=== PATIENT | male | born 1970 | race Caucasian/White ===

== ENCOUNTER → 2016-09-17 | Outpatient (CLI) | payer BC ==
--- NOTE | 2016-09-17 14:15 | RAD ---
APPROVED REPORT Test Type: Exercise Stress Nurse/Tech: Samaria Almanzar R.N. Test Indications: chest pain Cardiac History: Family history, Hypertension Medications: See Electronic Medical Record Medical History: See Electronic Medical Record Resting ECG: NSR Resting Heart Rate: 79 bpm Resting Blood Pressure: 128/86mmHg Pretest Chest Pain: No chest pain Nurse/Tech Notes S1S2, lungs sound clear Consent: The procedure was explained to the patient in lay terms. Informed consent was witnessed. Compa eout was entered into [employer]. History and Stress Test performed by Samaria Almanzar R.N. Stress Symptoms Dyspnea POST EXERCISE Reason for Termination: Reached target heart rate Target HR: 146 Max HR: 152 bpm Exercise duration: 10 min. min:sec, 4 Stage Max Blood Pressure: 144/54mmHg Blood Pressure response to exercise: Normal blood pressure response during stress. Chest Pain: No. Arrhythmia: Yes. occ PVC ST Change: No. INTERPRETATION Stress EKG Conclusion: Baseline EKG showed sinus rhythm. No ischemic changes at peak stress. No arr hythmias. Imaging Protocol IMAGE PROTOCOL: Rest Tc-99m/stress Tc-99m 1 day Rest: Stress: Viability: Radiopharm.Tc99m [id number] Sestamibi Dose13.7mCi 32mCi Img Date 09/17/2016 09/17/2016 Inj-Img [id number]. 60min. Rest Admin Site:IV - Left HandAdministrator:JESSICA Victor Stress Admin Site: IV - Left HandAdministrator: Eren Hayes, (R)(N) STRESS DATA End Diast. Vol.137.0mlAv. Heart Rate87.0bpm End Syst. Vol.58.0mlCO Index BSA0.0L/min Myocardial Tnyr573.0gEject. Sruotlzz86.0% Stress Rates Pk. Fill Rate2.60EDV/secLVtime Pk. Fill 101.99msec Pk. Empty Rate4.18ESV/secLVtime Pk. Sjnre455.82msec 04/16 Pk. Fill1.66EDV/sec Stress Scores Regional WT2.00Summed WT4.00 Regional WM0.00Summed WM0.00 Study quality was good. Left Ventricular size was Normal at Rest and Stress. Lung uptake was Normal. Left Ventricular ejection fraction is 58%. The rest and stress images show normal perfusion, normal contraction and thickening. LV Perf. Quant 17 Seg. SSS0.00 17 Seg. SRS1.00 17 Seg. SDS0.00 Stress Defect Extent (% LAD)0.00Rest Defect Extent (% LAD)0.00Rev. Defect Extent (% LAD)0.00 Stress Defect Extent (% LCX) 0.00Rest Defect Extent (% LCX)5.00Rev. Defect Extent (% LCX)0.00 Stress Defect Extent (% RCA)0.00Rest Defect Extent (% RCA)0.00Rev. Defect Extent (% RCA)0.00 Stress Defect Extent (% HALEIGH)0.90Rest Defect Extent (% HALEIGH)2.80Rev. Defect Extent (% HALEIGH)0.00 Conclusion 1. Treadmill exercise cardioisotope stress test did not show any evidence of ischemia or infarct. 2. Normal left ventricular systolic function with ejection fraction calculated at 58%. 3. Low risk for cardiac events.
== END | disposition home or self-care (01) ==
LOC: NM 07:51
PROVIDERS: ATTEND Internal Medicine Cardiovascular Disease
DX: R07.9 Chest pain, unspecified (principal); Z82.49 Family history of ischemic heart disease and other diseases of the circulatory system
CPT/HCPCS: 78452; 93017; 96374; 96375; 96376; A9500